=== PATIENT | male | born 1990 | race Caucasian/White ===

== ENCOUNTER 2017-03-22 13:51 | Emergency (ER) | payer BC, OTHER ==
--- NOTE | 2017-03-22 14:05 | EDPHY ---
H & P Stated Complaint: Abd cramping,n/v/d since last pm;hyperventilating HPI/ROS: CHIEF COMPLAINT: Abdominal pain, vomiting, diarrhea. HISTORY OF PRESENT ILLNESS: This patient is a 26 year old male complaining of generalized abdominal pain onset around 2:00am, 12 hours ago. It has worsened since onset. He endorses subjective fever. He has vomited 2-3 times per hour since waking this morning. He endorses frequent episodes of diarrhea, most recently about one hour ago. He denies eating any unusual or spoiled foods. No ill contacts. He went to a bar last night where he ate and drank, but he denies heavy alcohol consumption. He states his current symptoms feel similar to when he had appendicitis as a child. He did have an appendectomy at that time. He complains of generalized weakness. No cough, sore throat, urinary complaints, headache, chest pain, shortness of breath, or other associated symptoms. REVIEW OF SYSTEMS: A ten point review of systems was performed and is negative with the exception of the items mentioned in the HPI. Past medical history: Denies Past surgical history: 1. Appendectomy Family history: Noncontributory. Social history: Works for [employer]. Lives with one roommate. General Appearance: Alert. Vital signs reviewed. Blood pressure 120/83, respiratory rate 28 at triage. Eyes: Pupils equal and round, no conjunctival injection, no discharge. Anicteric. ENT, Mouth: Mucous membranes are moist, no oropharyngeal erythema or edema. Neck: No lymphadenopathy, supple. Respiratory: Lungs are clear to auscultation; no wheezes, rales, or rhonchi. Cardiovascular: Regular rate and rhythm; no murmur, rub, or gallop. Gastrointestinal: Mildly diffusely tender abdomen. Abdomen is soft, no masses or organomegaly, bowel sounds normal. Skin: Warm and dry, no rashes on exposed skin, normal color. Back: Nontender to palpation over the thoracolumbar spine. No CVAT. Extremities: No lower extremity edema, no calf tenderness or swelling. Neurological: Alert and oriented. Moving all four extremities easily and equally. Psychiatric: Normal affect. - Personal History Current Tetanus Diphtheria and Acellular Pertussis (TDAP): Yes - Medical/Surgical History Other PMH: healthy - Social History Smoking Status: Never smoked Constitutional: Initial Vital Signs Temperature (C) 36.8 C 03/22/17 13:55 Heart Rate 96 03/22/17 13:55 Respiratory Rate 28 H 03/22/17 13:55 Blood Pressure 120/83 H 03/22/17 13:55 O2 Sat (%) 100 03/22/17 13:55 O2 Delivery Mode Room Air O2 (L/minute) 2 Allergies/Adverse Reactions: bees Allergy (Uncoded 03/22/17 13:54) Home Medications: Medication Instructions Recorded Ondansetron Odt [Zofran Odt 4 mg 4 mg PO Q4 PRN #10 tab 03/22/17 (RX)] Medical Decision Making ED Course/Re-evaluation: This 26 year old male presents with 12 hour history of abdominal pain, vomiting , and diarrhea. His abdomen is mildly diffusely tender on exam. IV established. Plan for labs including CBC, BMP. Plan to administer 4mg IV Zofran, 1L IV NS for symptom relief. Re-evaluated at 3:00 p.m. He is resting more comfortably, no vomiting or diarrhea since his arrival in the emergency department. He continues to complain of abdominal pain. His abdomen remains soft with no appreciable tenderness on exam. Labs reviewed. Plan to administer 10mg IV Ketamine for pain relief. Reevaluated at 4:26 p.m. The patient complains of worsening abdominal pain, particularly left-sided. On reexamination, abdomen is soft, with no focal tenderness or guarding. He has not vomited. Plan to administer 10mg IV Reglan and 0.5mg IV Dilaudid for pain and nausea relief. Plan for additional laboratory studies including liver function and lipase. 17:21 Reviewed laboratory studies. They continue to be largely unremarkable. 17:34 Patient is sleeping. 18:20 Patient is feeling better. He did vomit once prior to receiving Reglan and Dilaudid. He has not vomited again. LFTs and lipase are unremarkable except for ALT of 125. I do not suspect cholecystitis or pancreatitis. His abdomen remains soft and nontender. Plan for PO challenge. This presentation is most consistent with a gastroenteritis. He has not had diarrhea in the department and I do not think that stool studies are warranted at this time. He has been rehydrated. 18:55 Patient tolerated PO challenge and is still feeling better. Plan to discharge home in improved condition. Followup and return precautions discussed. The patient is comfortable with this plan. Differential Diagnosis: Abdominal pain including but not limited to bowel obstruction, cholecystitis, pancreatitis, gastritis and urinary tract infection. - Data Points Laboratory Results: Laboratory Results 03/22/17 14:30 03/22/17 14:30 Medications Given: Discontinued Medications Hydromorphone HCl (Dilaudid) 0.5 mg IVP EDNOW ONE Stop: 03/22/17 16:28 Last Admin: 03/22/17 16:32 Dose: 0.5 mg Sodium Chloride (Ns) 1,000 mls @ 0 mls/hr IV EDNOW ONE; Wide Open PRN Reason: Protocol Stop: 03/22/17 14:18 Last Admin: 03/22/17 14:33 Dose: 1,000 mls Ketamine HCl (Ketamine) 10 mg IVP EDNOW ONE Stop: 03/22/17 15:00 Last Admin: 03/22/17 16:15 Dose: 10 mg Metoclopramide HCl (Reglan Injection) 10 mg IVP EDNOW ONE Stop: 03/22/17 16:29 Last Admin: 03/22/17 16:31 Dose: 10 mg Ondansetron HCl (Zofran) 4 mg IVP EDNOW ONE Stop: 03/22/17 14:18 Last Admin: 03/22/17 14:33 Dose: 4 mg Departure - Departure Disposition: Home, Routine, Self-Care Clinical Impression: Nausea vomiting and diarrhea, Acute gastroenteritis Abdominal pain Qualifiers: Abdominal location: generalized Qualified Code(s): R10.84 - Generalized abdominal pain Condition: Good Instructions: Gastroenteritis (ED), Acute Nausea and Vomiting (ED) Additional Instructions: 1. Follow up with your primary care provider for symptoms unresolved in 1-2 days. 2. Stay well hydrated. Follow a clear liquid diet as we discussed, then introduce bland foods as tolerated. These include bananas, applesauce, rice, and toast. You may find more information in the attached instructions. 3. Take Zofran as prescribed as needed for nausea. 4. Return to the emergency department for uncontrollable vomiting or diarrhea, worsening or changing abdominal pain, fever, or other worsening of condition. Referrals: Keren Alford DO [Doctor of Osteopathy] - As per Instructions Prescriptions: Ondansetron Odt [Zofran Odt 4 mg (RX)] 4 mg PO Q4 PRN #10 tab PRN Reason: nausea Report Scribed for: Sole Smith Report Scribed by: Miranda Lyons Date of Report: 03/22/17 Time of Report: 17:22 Physician Review and Approval Statement: 03/22/17 14:05 Portions of this note were transcribed by the medical biller/coder. I, Dr. Sole Smith, personally performed the history, physical exam, and medical decision- making; and confirmed the accuracy of the information in the transcribed note.
[2017-03-22] MEDS ORDERED: ONDANSETRON 4 MG/2 ML VIAL IVP ONE (14:17)
[2017-03-22] MEDS ORDERED: NS 1,000 ML IV ONE (14:17)
[2017-03-22 14:43] LABS: % IMMATURE GRANULYOCYTES 0.2 % (0.0-1.1); ABSOLUTE IMMATURE GRANULOCYTES 0.01 10^3/uL (0.00-0.10); ADD DIFF? NO; ADD MORPH? NO; ADD SCAN? NO; ATYPICAL LYMPHOCYTE FLAG 60 (0-99); FRAGMENT RBC FLAG 0 (0-99); HEMATOCRIT 45.1 % (40.0-51.0); HEMOGLOBIN 15.8 g/dL (13.7-17.5); LEFT SHIFT FLG 0 (0-99); LIPEMIA HEMOLYSIS FLAG 90 (0-99); MEAN CELL HEMOGLOBIN 27.5 pg (27.9-34.1); MEAN CELL VOLUME 78.4 fL (81.5-99.8); MEAN PLATELET VOLUME 10.6 fL (8.7-11.7); PLATELET CLUMPS FLAG 0 (0-99); PLATELET COUNT 201 10^3/uL (150-400); RED BLOOD CELL COUNT 5.75 10^6/uL (4.40-6.38); RED CELL DISTRIBUTION WIDTH 12.8 % (11.5-15.2)
[2017-03-22 14:56] LABS: ANION GAP 17 mEq/L (8-16); CARBON DIOXIDE 17 mEq/l (22-31); CHLORIDE 104 mEq/L (97-110); CREATININE 0.9 mg/dL (0.7-1.3); GLOMERULAR FILTRATION RATE > 60; GLUCOSE 117 mg/dL (70-100); POTASSIUM 3.7 mEq/L (3.5-5.2); SODIUM 138 mEq/L (134-144)
[2017-03-22] MEDS: KETAMINE 100 MG/10 ML SYR IVP ONE ×2 (15:16→16:15)
[2017-03-22] MEDS ORDERED: HYDROmorphONE/DILAUDID 1 MG/ML INJ IVP ONE (16:27)
[2017-03-22] MEDS ORDERED: METOCLOPRAMIDE 10 MG/2 ML VIAL IVP ONE (16:28)
[2017-03-22] MEDS ORDERED: METOCLOPRAMIDE 10 MG/2 ML VIAL ONE (16:29)
[2017-03-22] MEDS ORDERED: HYDROmorphONE/DILAUDID 1 MG/ML INJ ONE (16:29)
[2017-03-22 17:05] LABS: ALBUMIN 4.8 g/dL (3.5-5.0); BILIRUBIN-CONJUGATED 0.4 mg/dL (0.0-0.5); BILIRUBIN-UNCONJUGATED 0.6 mg/dL (0.0-1.1); TOTAL PROTEIN 8.1 g/dL (6.3-8.2)
[2017-03-22 17:45] VITALS: RESP 16
[2017-03-22 19:16] VITALS: BP 136/74; PULSE 94; TEMP 98.6; O2SAT 98
== END 2017-03-22 19:16 | disposition home or self-care (01) ==
DX: K52.9 Noninfective gastroenteritis and colitis, unspecified (principal); E86.9 Volume depletion, unspecified; Z90.49 Acquired absence of other specified parts of digestive tract
CPT/HCPCS: 96374; J1170; J2405; J2765